=== PATIENT | female | born 1965 | race Two or more races ===

== ENCOUNTER 2019-11-28 12:57 | Emergency (ER) | payer MEDICAID ==
[~2019-11-28] VITALS: Ht 160 cm; Wt 75.0 kg
[2019-11-28] MEDS ORDERED: AZITHROMYCIN 500 MG TABLET PO STA (18:02)
[2019-11-28] MEDS ORDERED: CEFTRIAXONE SODIUM 250 MG/VIAL IM STA (18:02)
[2019-11-28 20:10] VITALS: BP 143/82
[2019-11-28 20:22] LABS: CLARITY URINE CLOUDY (CLEAR); COLOR URINE YELLOW (YELLOW); KETONES URINE NEGATIVE (NEGATIVE); LEUKOCYTE ESTERASE URINE 1+ (NEGATIVE); NITRITE URINE NEGATIVE (NEGATIVE); OCCULT BLOOD URINE NEGATIVE (NEGATIVE); PROTEIN URINE NEGATIVE (NEGATIVE); SPECIFIC GRAVITY URINE 1.023 (1.005-1.030); UROBILINOGEN URINE 0.2 E.U./dL (0.2-1.0)
== END 2019-11-28 20:11 | disposition home or self-care (01) ==
LOC: ER 12:57
DX: L30.4 Erythema intertrigo (principal); Z98.890 Other specified postprocedural states
CPT/HCPCS: 81003; 82962; 99283